=== PATIENT | male | born 1965 | race Caucasian/White ===

== ENCOUNTER → 2016-09-27 | Outpatient (CLI) | payer OTHER ==
[2016-09-27 13:39] LABS: BLOOD UREA NITROGEN 19 mg/dl (7-18); BUN/CREATININE RATIO 20.4 (10-20); CALCIUM 8.7 mg/dl (8.5-10.1); CARBON DIOXIDE 28 mmol/L (21-32); CHLORIDE 102 mmol/L (98-107); CREATININE 0.93 mg/dl (0.60-1.40); GLUCOSE 101 mg/dl (70-99); SODIUM 137 mmol/L (136-145)
== END | disposition home or self-care (01) ==
LOC: C.LABMFLN 09:30
PROVIDERS: ATTEND Family Medicine
DX: I10 Essential (primary) hypertension (principal)